=== PATIENT | female | born 1985 | race Caucasian/White ===

== ENCOUNTER 2019-07-07 16:44 | Emergency (ER) | payer SELFPAY ==
--- NOTE | 2019-07-07 16:54 | Event Note ---
ED Screening Note Date of service: 07/07/19 Time: 16:49 ED Screening Note: 34 y o female presents with abd pain with n/vd x 2 days t was seen by clinic on wednesday was given meds, not getting better This initial assessment/diagnostic orders/clinical plan/treatment(s) is/are subject to change based on patients health status, clinical progression and re- assessment by fellow clinical providers in the ED. Further treatment and workup at subsequent clinical providers discretion. Patient/guardian urged not to elope from the ED as their condition may be serious if not clinically assessed and managed. Initial orders include: ua,upt, labs
[2019-07-07 17:35] LABS: Bilirubin,Urine NEG (Negative); Blood,Urine LG (Negative); Color,Urine Straw (Yellow); Protein,Urine <15 mg/dL mg/dL (Negative); Urobilinogen,Urine < 2.0 mg/dL (<2.0)
[2019-07-07 17:51] LABS: Basophils # (Auto) 0.1 K/mm3 (0.0-0.1); Basophils % (Auto) 0.9 % (0.0-1.8); Eosinophils # (Auto) 0.5 K/mm3 (0.0-0.4); Eosinophils % (Auto) 4.1 % (0.0-4.3); Hematocrit 36.2 % (30.3-42.9); Hemoglobin 11.7 gm/dl (10.1-14.3); Lymphocytes # (Auto) 3.3 K/mm3 (1.2-5.4); Lymphocytes % (Auto) 27.8 % (13.4-35.0); Mean Corpuscular HGB Conc 32 % (30-34); Mean Corpuscular Volume 79 fl (79-97); Monocytes # (Auto) 0.8 K/mm3 (0.0-0.8); Monocytes % (Auto) 6.7 % (0.0-7.3); Platelet Count 346 K/mm3 (140-440); Red Blood Count 4.62 M/mm3 (3.65-5.03); Red Cell Distribution Width 15.3 % (13.2-15.2)
[2019-07-07 18:10] LABS: Alanine Aminotransferase 38 units/L (7-56); Albumin 3.8 g/dL (3.9-5); BUN/Creatinine Ratio 20; Blood Urea Nitrogen 12 mg/dL (7-17); Hemolysis Index 4
--- NOTE | 2019-07-07 22:57 | Emergency Department Report ---
ED Abdominal Pain HPI - General Chief Complaint: Abdominal Pain Stated Complaint: ABD PAIN X 1 WEEK Time Seen by Provider: 07/07/19 16:49 Source: patient Mode of arrival: Ambulatory Limitations: No Limitations - History of Present Illness Initial Comments: 34 y/o female dismissed department complaining of a 4-5 day history of epigastric abdominal pain that radiates towards her flank associated with occasional dysuria. Reports no nausea, vomiting, diarrhea, fever, chills, sweats no chest pain or palpitations MD Complaint: abdominal pain Location: epigastric Radiation: none, epigastric Severity: moderate Quality: stabbing Consistency: constant Improves With: nothing Worsens With: nothing Associated Symptoms: denies: nausea, vomiting, diarrhea, constipation, dysuria, hematemesis, hematuria, anorexia, syncope - Related Data Previous Rx's Medication Instructions Recorded Last Taken Type Hyoscyamine Subl [Levsin Sl 0.125 0.125 mg SL Q6HR #10 tab 07/08/19 Unknown Rx TAB] Allergies Allergy/AdvReac Type Severity Reaction Status Date / Time No Known Allergies Allergy Unverified 07/07/19 16:45 ED Review of Systems ROS: Stated complaint: ABD PAIN X 1 WEEK Other details as noted in HPI Comment: All other systems reviewed and negative ED Past Medical Hx - Past Medical History Additional medical history: THYROID - Social History Smoking Status: Never Smoker Substance Use Type: None - Medications Home Medications: Home Medications Medication Instructions Recorded Confirmed Last Taken Type Hyoscyamine Subl [Levsin Sl 0.125 0.125 mg SL Q6HR #10 tab 07/08/19 Unknown Rx TAB] ED Physical Exam - General Limitations: No Limitations General appearance: alert, in no apparent distress - Head Head exam: Present: atraumatic, normocephalic - Eye Eye exam: Present: normal appearance, PERRL, EOMI. Absent: conjunctival injection, nystagmus Pupils: Present: normal accommodation. Absent: unequal - ENT ENT exam: Present: normal exam, normal orophraynx, mucous membranes moist, TM's normal bilaterally - Neck Neck exam: Present: normal inspection, full ROM. Absent: tenderness, meningismus, lymphadenopathy - Respiratory Respiratory exam: Present: normal lung sounds bilaterally. Absent: respiratory distress, rales, rhonchi - Cardiovascular Cardiovascular Exam: Present: regular rate, normal rhythm. Absent: bradycardia, tachycardia, systolic murmur, diastolic murmur, rubs, gallop - GI/Abdominal GI/Abdominal exam: Present: soft, tenderness, normal bowel sounds. Absent: gua rding, rebound, hypoactive bowel sounds, organomegaly, bruit, pulsatile mass, hernia - Extremities Exam Extremities exam: Present: normal inspection, full ROM, normal capillary refill, pedal edema - Back Exam Back exam: Present: normal inspection - Neurological Exam Neurological exam: Present: alert, oriented X3 - Psychiatric Psychiatric exam: Present: normal affect, normal mood - Skin Skin exam: Present: warm, dry, intact, normal color. Absent: rash ED Medical Decision Making - Lab Data Result diagrams: 07/07/19 17:43 07/07/19 17:43 - Radiology Data Radiology results: [place] [address] Cat Scan Report Signed Patient: JOEL THOMPSON MR#: [id number] : 1985 Acct:[id number] Age/Sex: 34 / F ADM Date: 07/07/19 Loc: ED Attending Dr: Ordering Physician: AB ASHTON Date of Service: 07/07/19 Procedure(s): CT abdomen pelvis w con Accession Number(s): [id number] cc: AB ASHTON CT ABDOMEN AND PELVIS WITH IV CONTRAST INDICATION: Generalized lower abdominal pain TECHNIQUE: Following the administration of intravenous contrast, multiple axial CT images of the abdomen and pelvis were acquired. Sagittal and coronal reformats were obtained. All CT performed at this facility utilize dose reduction techniques including automated exposure control, iterative reconstruction and weight based dosing when appropriate to reduce patient radiation dose to as low as reasonably achievable. COMPARISON: No prior studies are available for comparison FINDINGS: Limited imaging of the bilateral lung bases demonstrates no acute abnormality Abdomen: The gallbladder has been removed. The liver, spleen, pancreas, bilateral adrenal glands and bilateral kidneys show no evidence of acute abnormality. The large and small bowel are normal in caliber. Pelvis: The uterus is enlarged and appears heterogeneous measuring 13.3 x 5.0 cm. An IUD is present. There is a small amount of endometrial fluid. There is a single 2 cm right adnexal cyst. No free pelvic fluid is identified. The urinary bladder appears normal. Bones and Soft Tissues: Evaluation of bony structures demonstrates no evidence of acute bony abnormality. Evaluation of soft tissue structures demonstrates no focal soft tissue abnormality. IMPRESSION: 1. Enlarged heterogeneous uterus containing an IUD. There is a small amount of endometrial fluid. Please correlate with patient's clinical circumstances. 2. Previous cholecystectomy. Signer Name: Alice Garner MD Signed: 07/08/2019 12:11 AM Workstation Name: [id number] Transcribed By: EB Dictated By: Alice Garner MD Electronically Authenticated By: Alice Garner MD Signed Date/Time: 07/08/19 0011 - Medical Decision Making 34 year old female presents with abdominal pain of unclear etiology. A CT scan was performed to evaluate for potential causes of the abdominal pain, however, neither the clinical exam nor the CT has identified an emergent etiology for the abdominal pain. Specifically, given the benign exam, the laboratory studies, and unremarkable CT, I have a very low suspicion for appendicitis, ischemic bowel, bowel perforation, or any other life threatening disease. I have discussed with the patient the level of uncertainty with undifferentiated abdominal pain and clearly explained the need to follow-up as noted on the discharge instructions, or return to the Emergency Department imme diately if the pain worsens, develops fever, persistent and uncontrollable vomiting, or for any new symptoms or concerns. Critical care attestation.: If time is entered above; I have spent that time in minutes in the direct care of this critically ill patient, excluding procedure time. ED Disposition Clinical Impression: Abdominal pain Disposition: DC-01 TO HOME OR SELFCARE Is pt being admited?: No Does the pt Need Aspirin: No Condition: Stable Instructions: Abdominal Pain (ED) Prescriptions: Hyoscyamine Subl [Levsin Sl 0.125 TAB] 0.125 mg SL Q6HR #10 tab Referrals: [facility] [Provider Group] - 2-3 Days
--- NOTE | 2019-07-08 00:15 | Cat Scan Report ---
CT ABDOMEN AND PELVIS WITH IV CONTRAST INDICATION: Generalized lower abdominal pain TECHNIQUE: Following the administration of intravenous contrast, multiple axial CT images of the abdo men and pelvis were acquired. Sagittal and coronal reformats were obtained. All CT performed at this facility utilize dose reduction techniques including automated exposure control, iterative reconstru ction and weight based dosing when appropriate to reduce patient radiation dose to as low as reasonab ly achievable. COMPARISON: No prior studies are available for comparison FINDINGS: Limited imaging of the bilateral lung bases demonstrates no acute abnormality Abdomen: The gallbladder has been removed. The liver, spleen, pancreas, bilateral adrenal glands and bilateral kidneys show no evidence of acute abnormality. The large and small bowel are normal in shan jessica. Pelvis: The uterus is enlarged and appears heterogeneous measuring 13.3 x 5.0 cm. An IUD is present. There is a small amount of endometrial fluid. There is a single 2 cm right adnexal cyst. No free pelv ic fluid is identified. The urinary bladder appears normal. Bones and Soft Tissues: Evaluation of bony structures demonstrates no evidence of acute bony abnormal ity. Evaluation of soft tissue structures demonstrates no focal soft tissue abnormality. IMPRESSION: 1. Enlarged heterogeneous uterus containing an IUD. There is a small amount of endometrial fluid. Ple ase correlate with patient's clinical circumstances. 2. Previous cholecystectomy. Signer Name: Alice Garner MD Signed: 07/08/2019 12:11 AM Workstation Name: [id number]
[2019-07-08 02:03] VITALS: BP 110/79
== END 2019-07-08 02:03 | disposition home or self-care (01) ==
LOC: ED 16:44
DX: R10.13 Epigastric pain (principal); Z79.899 Other long term (current) drug therapy
CPT/HCPCS: 36415; 74177; 80053; 81001; 83690; 85025; 99284; Q9967